=== PATIENT | male | born 1995 | race African-American/Black ===

== ENCOUNTER 2017-05-12 09:30 | Emergency (ER) | payer OTHER ==
[~2017-05-12] VITALS: Ht 170.2 cm; Wt 71.8 kg
[2017-05-12 09:31] VITALS: BP 120/77
[2017-05-12] MEDS ORDERED: AUGM875T28 PO (10:28)
== END 2017-05-12 10:31 | disposition home or self-care (01) ==
LOC: M ED 09:30
DX: T16.2XXA Foreign body in left ear, initial encounter (principal); W34.010A Accidental discharge of airgun, initial encounter; Y92.89 Other specified places as the place of occurrence of the external cause; Y93.89 Activity, other specified; Y99.8 Other external cause status